=== PATIENT | male | born 1945 | race Caucasian/White ===

== ENCOUNTER 2018-09-06 06:36 | Observation (INO) | payer OTHER ==
[~2018-09-06] VITALS: Ht 175.3 cm; Wt 88.5 kg
[2018-09-06] VITALS (11 sets, daily range): BP systolic 128–150; BP diastolic 70–90
--- NOTE | ~2018-09-06 | D ---
[facility] [place] [address] DISCHARGE SUMMARY Name: MIGUEL BOWLING Room #: 219-P [facility] Mahendra Navarro#: [id number] Admission: 09/06/18 ������������������ Attend Phys: Urban Flores MD Discharge: 09/07/18 ������������������ Date of : 45 Report #: [id number] THIS REPORT FOR: //name// CC: Rehan Christine Maty DISCHARGE DIAGNOSES: 1. Atrial fibrillation. 2. Atypical atrial flutter. PROCEDURES PERFORMED: AFib and Aflutter ablation. HISTORY OF PRESENT ILLNESS: The patient is a 73-year-old male with history of hypertension, diabetes, atrial fibrillation and atypical atrial flutter, who has failed antiarrhythmic drugs and is here for ablation. He underwent successful AFib ablation today, with isolation of the left common and the two right-sided pulmonary veins. At baseline, he was in a left-sided atrial flutter with isolation of the veins. This flutter cycle length did change. We did map this atrial flutter to a critical isthmus that was near the right inferior pulmonary vein. Ablation at this site resulted in acute termination of the flutter; however, he did have other atrial flutters that were induced. Therefore, additional ablation including creation of a roof line with the cryoablation balloon and ablation of complex fractionated atrial electrograms along the posterior wall was also performed and the patient was rendered non-inducible. HOSPITAL COURSE: The patient was monitored in the CCU overnight and did well. On the day of discharge, he denied any chest pain, shortness of breath, PND, orthopnea, fevers or chills. PHYSICAL EXAMINATION: HEART: Regular rate and rhythm with no murmurs, rubs, gallops. LUNGS: Clear to auscultation bilaterally. ABDOMEN: Soft, nontender. GENITOURINARY: Groins showed no significant bruising or hematoma. On telemetry, he remained in sinus rhythm. As such, discharged instructions were reviewed with the patient. His discharge medications remained unchanged, other than stopping his diltiazem and decreasing his amiodarone from 200 b.i.d. to 200 daily. He will continue on his Xarelto. He will follow up in the EP clinic in 2 weeks and see me in 3 months. ��������������������������������������������� ���������������������������������������� By: ��������������������������������������������� 0901 1439 Urban Flores MD /nt
--- NOTE | ~2018-09-06 | P ---
[facility] [place] [address] PROCEDURE REPORT Name: MIGUEL BOWLING Room #: 219-P [facility] M.R.#: [id number] Admission: 09/06/18 ������������������ Attend Phys: Urban Flores MD Discharge: ������������������ Date of : 45 Report #: [id number] THIS REPORT FOR: //name// CC: Rehan Rutledge DATE OF SERVICE: 09/06/2018 PREOPERATIVE DIAGNOSES: 1. Paroxysmal atrial fibrillation. 2. Atypical atrial flutter. HISTORY: The patient is a 73-year-old with history of paroxysmal AFib and atypical atrial flutter who has failed antiarrhythmic drugs and is here for an ablation. PROCEDURES: 1. Atrial fibrillation ablation, CPT code 95730. 2. 3D mapping EP, CPT code 94202. 3. Intracardiac echo, CPT code 05956. 4. Second pathway ablation, CPT code 25176. 5. Focal ablation, CPT code 35491. ANESTHESIA: The patient underwent general anesthesia with no anesthesia related complications. DESCRIPTION OF PROCEDURE: The patient underwent informed consent. We discussed the details of the procedure including the risks, which include but not limited to bleeding, vascular damage, cardiac perforation as well as stroke or OR. He understood these risks and is willing to proceed. The patient was brought to the EP laboratory in a fasting and sedated state, prepped and draped in a sterile fashion. I obtained access to the right femoral vein x 3, placing an 8, 9 and 7-Frisian short sheath using the modified Seldinger technique. Next, using fluoroscopy, a decapolar catheter was placed in the coronary sinus with ease and an ice catheter was placed in the right atrium for intracardiac ultrasound. Using intracardiac ultrasound, there was evidence of a left common ostium and right superior and right inferior pulmonary vein. This was merged with the patient's cardiac CT scan. Next, a transseptal was performed using an SL1 sheath and a [place] needle. His transseptal was straightforward and I advanced the Lasso catheter into the left atrium. The patient had been systemically heparinized prior to the transseptal. At baseline, the patient was found to be in a left-sided atrial flutter. The atrial cycle length was 260 milliseconds with a distal to proximal activation along the decapolar catheter placed in the coronary sinus. The ventricular rate [facility] [address] [place] [address] PROCEDURE REPORT Name: [facility] Room #: [facility]-P [facility].Lyndsay#: [id number] Admission: 09/06/18 ������������������ Attend Phys: Urban Flores MD Discharge: ������������������ Date of : 45 Report #: [id number] was 510 milliseconds, QRS duration was 170 milliseconds with the preexisting right bundle branch block and a QT interval was 399 milliseconds. I attempted to entrain from CS 1, 2 and the PPI minus tachycardia cycle length was 70 milliseconds. Using a Lasso catheter, I created a detailed voltage map and activation map of this atrial flutter. I decided to proceed with isolating the veins first to see if this would terminate the flutter. While the patient had a large left common ostium, I performed approximately 3-4 freezes in the left superior branch and then, I turned my attention to the inferior branch of the left common ostium and performed additional 3-4 freezes and there was evidence of acute isolation of this vein. After isolating the left common ostium, the tachycardia cycle length had changed to around 380 milliseconds and based on the decapolar catheter, the activation sequence was now somewhat more vertical. I turned my attention to the right superior pulmonary vein and this vein really did not have much in the term of pulmonary vein activity, but I did perform two freezes in this vein with good temperatures. Phrenic nerve pacing was performed with the decapolar catheter placed at the phrenic nerve at a subclavian position. I then turned my attention to the right inferior pulmonary vein. This vein was actually difficult to isolate, took approximately five freezes. There were two different branches. The upper branch had an unusual takeoff. I did three freezes in this branch with temperatures that were only -30 degrees. This did not demonstrate isolation. I spent quite some time trying to get into this lower branch and eventually got into it and in this branch, I got very good temperatures of -40 to -45 degrees and performed two freezes in this vein and afterwards, this vein was now clearly isolated. I then placed the decapolar catheter back into the coronary sinus and now, the atrial flutter had a different activation sequence. It now had a proximal to distal activation in a tachycardia cycle length of 270 milliseconds. It appeared that this was likely a right-sided flutter. I decided to perform four additional freezes along the posterior roof region of the left atrium and this did not terminate this flutter. I performed a voltage map and clearly, we had isolated the four pulmonary veins and there was a partial isolation of the roof region. We did create an activation map of the atrial flutter. It appeared that most of the cycle length was in the left atrium, I did open up a SmartTouch ThermoCool ablation catheter and I performed entrainment from 6 o'clock along the cavotricuspid isthmus and the PPI minus tachycardia cycle length here was reproducibly 200 milliseconds, suggesting that this was not a right-sided flutter. I therefore performed additional activation of the left atrium and it appeared that this flutter was going around the right-sided veins and there was a slow area of conduction along the posterior wall. I performed entrainment with my Lasso catheter at the right inferior pulmonary vein and the PPI minus tachycardia cycle length here was 10 milliseconds. Therefore, I removed my Lasso catheter and placed the ablation catheter at this region and started ablating along an area of healthy tissue that was at the ray of the right-sided veins. Within 1 minute and 30 seconds, the tachycardia started to slow and then terminated. Post-termination of this tachycardia, I did perform additional isolation along the right-sided vessels to widen this area of [facility] [address] [place] [address] PROCEDURE REPORT Name: MIGUEL BOWLING [facility] Room [id number] Admission: 09/06/18 ������������������ Attend Phys: Urban Flores MD Discharge: ������������������ Date of : 45 Report #: [id number] isolation. I then performed additional EP testing and with double atrial extrastimuli, I could induce an atrial flutter with a cycle length of 270 milliseconds that appeared to have a similar activation sequences the prior tachycardia. I could not map this as it would terminate after about a minute and I could induce it about two or three times. Therefore, I decided to perform additional substrate modification along the roof area and solidify my roof lesion set that I started with the cryoballoon. I also performed additional ablation to widen the area of isolation along the right-sided veins and performed a modification of some of the complex fractionated electrograms along the posterior wall. I used lower mcgee and short durations in this region too and avoided the esophagus. Post-ablation, we performed a repeat voltage map and we had essentially isolated the entire posterior wall of the left atrium. As such, the procedure was concluded. Using intracardiac ultrasound, I verified there was no pericardial effusion. The patient received systemic protamine and once ACT was within acceptable range, all catheters and sheaths were pulled and hemostasis was obtained. The patient awoke neurologically and hemodynamically intact. No complications and no significant bleeding. CONCLUSIONS: 1. Successful AFib ablation with isolation of the left common ostium and the right superior and right inferior pulmonary veins. 2. Successful creation of a posterior wall roof line and posterior wall isolation. 3. Successful ablation of a left-sided atrial flutter with acute termination. ��������������������������������������������� ���������������������������������������� By: ��������������������������������������������� 1334 0651 Urban Flores MD /nt
[~2018-09-06 06:36] MED LIST: ALDACTONE25 MG PO; ALLOPURINOL 30300 M1 PO; ALLOPURINOL 30300 M3 PO; BACTROBAN CREAM30 G1 TOP; BYSTOLIC20 MG PO; CARDIZEM CD120 MG PO; CARDIZEM CD240 M1; CARDIZEM CD240 MG; CASODEX 50 MG T50 M1 PO; CATAPRES0.2 MG; CATAPRESS3 TOP; CLONIDINE HCL0.3 M2; CLONIDINE HCL0.3 M2 PO; CREON DR 12,001 EACH PO; DEMADEX20 MG PO; DILTIAZEM ER240 M1; DILTIAZEM ER240 M1 PO; DYNACIN100 MG; DYNACIN100 MG PO; EFFEXOR XR75 MG; FOLIC ACID1 MG; FOLIC ACID1 MG PO; GLUCOPHAGE1000 MG; GLUCOPHAGE1000 MG PO; GLUCOTROL5 MG; GLUCOTROL5 MG PO; GRALISE600 MG; GRALISE600 MG PO; HUMALOG PE100 UNIT/M SC; IBUPROFEN 800800 M1; IBUPROFEN 800800 M1 PO; IRON325; IRON325 PO; K-DUR 20 MEQ T20 MEQ PO; KEFLEX500 M1 PO; LANTUS SOL100 UNIT/1 SQ; LANTUS SOL100 UNIT/1 SUBQ; LEVOTHYROXINE75 MCG PO; LISINOPRIL40 MG PO; LOSARTAN-HCTZ1 EAC3 PO; METHOTREXATE 22.5 MG; METHOTREXATE 22.5 MG IJ; METHOTREXATE 22.5 MG PO; MINOCIN100 MG PO; MULTIVITAMINS1 EAC7; MULTIVITAMINS1 EAC7 PO; MYSOLINE250 M1; NEURONTIN 400400 M1 PO; NORCO 10-325 T1 EACH PO; NORCO 5-325 TA1 EAC1 PO; NOVOLOG FL100 UNIT/M SUBQ; NOVOLOG100 UNIT/1 SUBQ; PACERONE 200 M200 M1 PO; PAXIL 20 MG TAB20 M1 PO; PERCOCET 5-3251 EACH; POTASSIUM20; POTASSIUM20 PO; PREVALITE PACKE1 PKT; PREVALITE PACKE1 PKT PO; PROBIOTIC1 EACH; PROBIOTIC1 EACH PO; PROPAFENONE 15150 MG PO; PROTONIX40 M1 PO; SINGULAIR 10 MG10 M1 PO; SPIRONOLACTONE25 M1; SPIRONOLACTONE25 M1 PO; TAMSULOSIN HCL0.4 MG; TAMSULOSIN HCL0.4 MG PO; TORSEMIDE20 MG; TORSEMIDE20 MG PO; TRIAMTERENE-HC1 EAC3 PO; VENTOLIN HFA 1818 GM INH; VITAMIN B-121000 MC3; VITAMIN D5000 UNIT; VITAMINC500 PO; VITCB500GO; XARELTO15 MG; XARELTO20 MG PO
[2018-09-06 07:36] LABS: PROTIME 10.6 Seconds (9.3-11.4)
[2018-09-06] MEDS ORDERED: LYRICA 50 MG50 MG PO (07:36)
[2018-09-06] MEDS ORDERED: PROVIGIL 100 M100 M1 PO (07:40)
--- NOTE | 2018-09-06 19:29 | NUR ---
PT TO CCU AT 1425 FROM RECOVERY ROOM. REMAINED ON BEDREST 6 HOURS ORDERED. RIGHT GROIN SITE C/D/I WITH NO BLEEDING OR HEMATOMA. PT COMPLAINING OF BACK PAIN. GIVEN HYDROCODONE X1. VSS. PT'S AT BEDSIDE THIS AFTERNOON. WEST CATH REMOVED THIS EVENING. NSR/BBB ON HAUL CANE BRAKEMAN. REPORT GIVEN TO WHITEWASHER RN.
[2018-09-07 00:06] VITALS: BP 125/68
[2018-09-07 04:45] VITALS: BP 138/89
[2018-09-07 06:17] LABS: CALCIUM 8.2 mg/dL (8.5-10.1); CREATININE 2.4 mg/dL (0.7-1.3); POTASSIUM 4.3 mmol/L (3.5-5.1)
[2018-09-07 07:29] VITALS: BP 136/82
--- NOTE | 2018-09-07 07:31 | NUR ---
ASSESSMENTS CHARTED. PATIENT HAD AN AFIB ABLATION YESTERDAY. DROWSY SINCE PROCEDURE. C/O GENERALIZED AND FOOT PAIN DURING SHIFT. ORIGINAL PAIN MEDICATION GIVEN WAS HALF OF HIS NORMAL DOSE OF PAIN MEDS. TALKED WITH DR. FRYE AND REVISED PAIN MEDICATION TO HIS HOME DOSE. ACCESS SITE WAS RIGHT GROIN CLEAN DRY INTACT SOFT WITH MONIQUE CLOSURE. PLAN OF CARE IS FOR PATIENT TO GO HOME TODAY.
--- NOTE | 2018-09-07 07:35 | NUR ---
RECEIVED PT CARE APPROX 0700. AWAKE/A/OX4. RESTING IN BED. ASSESMENT COMPLETED. VSS. C/O MILD PAIN THIS AM- ON NARCO PRN. GROIN SITE- SOFT CLEAN DRY AND INTACT. SCDS ON. PT NO CONCERNS VOICED AT THIS TIME. ANTICIPATING DC HOME TODAY. WILL CONT. TO MONITOR.
[2018-09-07 09:01] VITALS: BP 136/82
--- NOTE | 2018-09-07 11:48 | NUR ---
DC INSTRUCTIONS GIVEN TO PT AND . GROIN SITE REMAINED CDI. PT DCD HOME WITH SELF CARE IN STABLE CONDITION.
== END 2018-09-07 11:56 | disposition home or self-care (01) ==
LOC: CATH 06:36 → 2N 14:33
PROVIDERS: ADMIT Internal Medicine Cardiovascular Disease
DX: I48.0 Paroxysmal atrial fibrillation (principal); I48.4 Atypical atrial flutter
CPT/HCPCS: 62110; 62900; 65040; 70005